=== PATIENT | female | born 1985 | race Two or more races ===

== ENCOUNTER 2019-12-18 15:29 | Emergency (ER) | payer OTHER ==
[~2019-12-18] VITALS: Ht 149.9 cm; Wt 59.9 kg
[2019-12-18 15:54] LABS: BILIRUBIN,URINE NEGATIVE (NEG); CLARITY,URINE CLEAR; COLOR,URINE YELLOW; NITRITE,URINE NEGATIVE (NEG); PROTEIN,URINE NEGATIVE (NEG-TRACE)
[2019-12-18 15:58] LABS: SQUAMOUS EPITHELIAL CELL,UR MOD /LPF
[2019-12-18 16:00] LABS: BACTERIA,URINE FEW /HPF (0-FEW); RBC,URINE RARE /HPF (0-2); WBC,URINE RARE /HPF (0-4)
--- NOTE | 2019-12-18 16:05 | PHYS DOC ---
Past Medical History Past Medical History: No Pertinent History Past Surgical History: Smoking Status: Never Smoker Alcohol Use: None General Adult EDM: Chief Complaint: ABDOMINAL PAIN HPI: HPI: Patient is a 34 year old female presents with a 2-day history of left-sided lower thoracic pain that radiates to the front. Patient states symptoms are worse with deep breaths and are moderate in severity at rest and more severe when she takes a deep breath. Patient denies any recent fevers chills cough vomiting or diarrhea. Patient also has had some intermittent ringing in her ears. Pain is sharp in nature. Review of Systems: Review of Systems: Constitutional: Denies fever or chills. [] Eyes: Denies change in visual acuity. [] HENT: Denies nasal congestion or sore throat. But has some ringing in her earS that is intermittent Respiratory: Denies cough but has some mild shortness of breath Cardiovascular: Complains of left lower rib pain but no edema GI: Denies abdominal pain, nausea, vomiting, bloody stools or diarrhea. [] : Denies dysuria. [] Musculoskeletal: Complains of left lower thoracic pain and some right shoulder pain Integument: Denies rash. [] Neurologic: Denies headache, focal weakness or sensory changes. [] Endocrine: Denies polyuria or polydipsia. [] Lymphatic: Denies swollen glands. [] Psychiatric: Denies depression or anxiety. [] Heart Score: HEART Score for Chest Pain: HEART Score for Chest Pain Response (Comments) Value History Slighlty/Non-Suspicious 0 ECG Normal 0 Age < 45 0 Risk Factors No Risk Factors 0 Troponin < Normal Limit 0 Total 0 Risk Factors: Risk Factors: DM, Current or recent (<one month) smoker, HTN, HLP, family history of CAD, obesity. Risk Scores: Score 0 - 3: 2.5% MACE over next 6 weeks - Discharge Home Score 4 - 6: 20.3% MACE over next 6 weeks - Admit for Clinical Observation Score 7 - 10: 72.7% MACE over next 6 weeks - Early Invasive Strategies Allergies: Allergies: Allergies Coded Allergies Type Severity Reaction Last Updated Verified No Known Drug Allergies 12/18/19 No Physical Exam: PE: Constitutional: Well developed, well nourished, no acute distress, non-toxic appearance. [] HENT: Normocephalic, atraumatic, bilateral external ears normal, oropharynx moist, no oral exudates, nose normal. [] Eyes: PERRLA, EOMI, conjunctiva normal, no discharge. [] Neck: Normal range of motion, no tenderness, supple, no stridor. [] Cardiovascular:Heart rate regular rhythm, no murmur [] Lungs & Thorax: Bilateral breath sounds clear to auscultation [] Abdomen: Bowel sounds normal, soft, no tenderness, no masses, no pulsatile masses. [] Skin: Warm, dry, no erythema, no rash. [] Back: No tenderness, no CVA tenderness. [] Extremities: No tenderness, no cyanosis, no clubbing, ROM intact, no edema. [] Neurologic: Alert and oriented X 3, normal motor function, normal sensory function, no focal deficits noted. [] Psychologic: Affect normal, judgement normal, mood normal. [] Current Patient Data: Labs: Laboratory Tests Test 12/18/19 15:44 12/18/19 16:10 Urine Collection Type Void Urine Color Yellow Urine Clarity Clear Urine pH 6.0 Urine Specific [place] 1.025 Urine Protein Negative mg/dL Urine Glucose (UA) Negative mg/dL Urine Ketones (Stick) Negative mg/dL Urine Blood Negative Urine Nitrite Negative Urine Bilirubin Negative Urine Urobilinogen Dipstick 1.0 mg/dL Urine Leukocyte Esterase Negative Urine RBC Rare /HPF Urine WBC Rare /HPF Urine Squamous Epithelial Cells Mod /LPF Urine Bacteria Few /HPF Urine Mucus Marked /LPF White Blood Count 7.4 x10^3/uL Red Blood Count 4.37 x10^6/uL Hemoglobin 14.3 g/dL Hematocrit 41.2 % Mean Corpuscular Volume 94 fL Mean Corpuscular Hemoglobin 33 pg Mean Corpuscular Hemoglobin Concent 35 g/dL Red Cell Distribution Width 12.8 % Platelet Count 209 x10^3/uL Neutrophils (%) (Auto) 47 % Lymphocytes (%) (Auto) 41 % Monocytes (%) (Auto) 9 % Eosinophils (%) (Auto) 3 % Basophils (%) (Auto) 0 % Neutrophils # (Auto) 3.4 x10^3/uL Lymphocytes # (Auto) 3.1 x10^3/uL Monocytes # (Auto) 0.6 x10^3/uL Eosinophils # (Auto) 0.2 x10^3/uL Basophils # (Auto) 0.0 x10^3/uL D-Dimer (Pina) < 0.27 ug/mlFEU Sodium Level 141 mmol/L Potassium Level 3.8 mmol/L Chloride Level 107 mmol/L Carbon Dioxide Level 27 mmol/L Anion Gap 7 Blood Urea Nitrogen 11 mg/dL Creatinine 0.8 mg/dL Estimated GFR (Cockcroft-Gault) 82.6 BUN/Creatinine Ratio 14 Glucose Level 98 mg/dL Calcium Level 9.7 mg/dL Total Bilirubin 0.4 mg/dL Aspartate Amino Transf (AST/SGOT) 20 U/L Alanine Aminotransferase (ALT/SGPT) 40 U/L Alkaline Phosphatase 36 U/L Troponin I Quantitative < 0.017 ng/mL Total Protein 7.9 g/dL Albumin 4.0 g/dL Albumin/Globulin Ratio 1.0 Lipase 150 U/L Current Medications Medications (Trade) Dose Ordered Sig/Radha Route PRN Reason Start Time Stop Time Status Last Admin Dose Admin Ketorolac Tromethamine (Toradol 15mg Vial) 15 mg 1X ONCE IVP 12/18/19 17:30 12/18/19 17:31 Laboratory Tests Test 12/18/19 15:44 Urine Collection Type Void Urine Color Yellow Urine Clarity Clear Urine pH 6.0 (<5.0-8.0) Urine Specific [place] 1.025 (1.000-1.030) Urine Protein Negative mg/dL (NEG-TRACE) Urine Glucose (UA) Negative mg/dL (NEG) Urine Ketones (Stick) Negative mg/dL (NEG) Urine Blood Negative (NEG) Urine Nitrite Negative (NEG) Urine Bilirubin Negative (NEG) Urine Urobilinogen Dipstick 1.0 mg/dL (0.2 mg/dL) Urine Leukocyte Esterase Negative (NEG) Urine RBC Rare /HPF (0-2) Urine WBC Rare /HPF (0-4) Urine Squamous Epithelial Cells Mod /LPF Urine Bacteria Few /HPF (0-FEW) Urine Mucus Marked /LPF Vital Signs: Vital Signs Date Time Temp Pulse Resp B/P (MAP) Pulse Ox O2 Delivery O2 Flow Rate FiO2 12/18/19 15:55 99.0 86 20 148/87 (107) 99 Room Air 99.0 EKG: EKG: [] EKG interpreted by me sinus rhythm with rate of 100 normal axis normal intervals normal ST segments Radiology/Procedures: Radiology/Procedures: [][facility] [address] [place] [address] IMAGING REPORT Signed PATIENT: MIGUEL CAROLINA ACCOUNT: [id number] : 1985 LOCATION: ER AGE: 34 SEX: F EXAM STATUS: REG ER ORD. PHYSICIAN: ERLINDA TRENT MD REASON: LEFT LOWER RIB PAIN /UCG FIRST PROCEDURE: PORTABLE CHEST 1V PORTABLE CHEST 1V History: Reason: LEFT LOWER RIB PAIN /UCG FIRST / Spl. Instructions: / History: Comparison: None. Findings: Low lung volumes. Mild bibasilar linear atelectasis. No pneumothorax. No pleural effusion. Normal heart size. Impression: 1. Low lung volumes with mild bibasilar linear atelectasis. Electronically signed by: Yared Amador DO (12/18/2019 5:14 PM) [facility] DICTATED and SIGNED BY: YARED AMADOR DO DATE: 12/18/19 0219 Course & Med Decision Making: Course & Med Decision Making Pertinent Labs and Imaging studies reviewed. (See chart for details) [] 34-year-old female presents with left sided back pain. Patient has no risk factors for thoracic aortic dissection and work-up is negative, doubt thoracic aortic dissection. D-dimer is negative, doubt pulmonary embolism. EKG and cardiac enzymes are negative, doubt acute coronary syndrome. Most likely patient has muscular strain. Return precautions given. Dragon Disclaimer: Yovany Disclaimer: This electronic medical record was generated, in whole or in part, using a voice recognition dictation system. Departure Departure Impression: Primary Impression: Left-sided thoracic back pain Disposition: HOME, SELF-CARE Condition: GOOD Referrals: NO PCP (PCP) 2-3 DAYS PCP Patient Instructions: Back Pain, Adult Additional Instructions: EMERGENCY DEPARTMENT GENERAL DISCHARGE INSTRUCTIONS THANK YOU for coming to [facility] Emergency Department (ED) today and trusting us with your care. We trust that you had a positive experience in our Emergency Department. If you wish to speak to the department Management you can contact the department helper at . YOUR FOLLOW UP INSTRUCTIONS ARE FOLLOWS: Do you have a private doctor? If you do not have a private doctor, please ask for a resource list of physicians or clinics that may be able to assist you with follow up care. The Emergency Physician has interpreted your x-rays. The X-ray specialist will also review them. If there is a change in the findings you will be notified in 48 hours when at all possible. A lab test or lab culture may have been done, your results will be reviewed and you will be notified if you need a change in treatment. ADDITIONAL INSTRUCTIONS AND INFORMATION Your care today has been supervised by a physician who is specially trained in emergency care. Many problems require more than one evaluation for a complete diagnosis and treatment. We recommend that you schedule your follow up appointment as recommended to ensure complete treatment of your illness or injury. If you are unable to obtain follow up care and continue to have a problem, or if your condition worsens we recommend that you return to the ED. We are not able to safely determine your condition over the phone nor are we able to give sound medical advice over the phone. For these safety reasons, if you call for medical advice we will ask you to come to the ED for further evaluation If you have any questions regarding these discharge instructions please call the ED at . SAFETY INFORMATION In the interest of safety, wellness, and injury prevention; we encourage you to wear your seatbelt, if you smoke; quit smoking, and we encourage your family to use protective helmet for bicycling and other sporting events that present an increased risk for head injury. IF YOUR SYMPTOMS WORSEN OR NEW SYMPTOMS DEVELOP, OR YOU HAVE CONCERNS ABOUT YOUR CONDITION; OR IF YOUR CONDITION WORSENS WHILE YOU ARE WAITING FOR YOUR FOLLOW UP APPOINTMENT; EITHER CONTACT YOUR PRIMARY CARE DOCTOR, THE PHYSICIAN WHOSE NAME AND NUMBER YOU WERE GIVEN, OR RETURN TO THE ED IMMEDIATELY. Scripts Ibuprofen (IBUPROFEN) 600 Mg Tablet 600 MG PO PRN Q6HRS PRN for INFLAMMATION, #20 TAB Prov: ERLINDA TRENT MD 12/18/19 Justicifation of Admission Dx: Justifications for Admission: Justification of Admission Dx: N/A ERLINDA TRENT MD Dec 18, 2019 16:05
[2019-12-18 16:15] LABS: BASO % 0 % (0-3); EOS # 0.2 x10^3/uL (0.0-0.7); EOS % 3 % (0-3); HEMATOCRIT 41.2 % (36.0-47.0); HEMOGLOBIN 14.3 g/dL (12.0-15.5); LYMPH # 3.1 x10^3/uL (1.0-4.8); LYMPH % 41 % (24-48); MEAN CORPUSCULAR HEMOGLOBIN 33 pg (25-35); MEAN CORPUSCULAR HGB CONC 35 g/dL (31-37); MEAN CORPUSCULAR VOLUME 94 fL (79-100); MONO # 0.6 x10^3/uL (0.0-1.1); MONO % 9 % (0-9); NEUT # 3.4 x10^3/uL (1.8-7.7); NEUT % 47 % (31-73); PLATELET COUNT 209 x10^3/uL (140-400); RED BLOOD COUNT 4.37 x10^6/uL (3.50-5.40); RED CELL DISTRIBUTION WIDTH 12.8 % (11.5-14.5); WHITE BLOOD COUNT 7.4 x10^3/uL (4.0-11.0)
[2019-12-18 16:22] LABS: CALCIUM 9.7 mg/dL (8.5-10.1); CREATININE 0.8 mg/dL (0.6-1.0); GFR 82.6; POTASSIUM 3.8 mmol/L (3.5-5.1)
[2019-12-18 16:28] LABS: TOTAL BILIRUBIN 0.4 mg/dL (0.2-1.0); TOTAL PROTEIN 7.9 g/dL (6.4-8.2)
--- NOTE | 2019-12-18 16:41 | EKG ---
[facility] [address] [place] [address] Test Date: 2019-12-18 Test Time: 16:01:53 Pat Name: MIGUEL CAROLINA Department: Room: Gender: F Cardiology Specialist: : 1985 Requested By: ERLINDA TRENT Order Number: [id number] Reading MD: Measurements Intervals [place] Rate: 100 P: 43 LA: 128 QRS: 34 QRSD: 78 T: 20 QT: 332 QTc: 431 Interpretive Statements SINUS RHYTHM NORMAL ECG RI6.02 No previous ECG available for comparison
[2019-12-18 17:00] VITALS: BP 155/77
--- NOTE | 2019-12-18 17:17 | RAD ---
PORTABLE CHEST 1V History: Reason: LEFT LOWER RIB PAIN /UCG FIRST / Spl. Instructions: / History: Comparison: None. Findings: Low lung volumes. Mild bibasilar linear atelectasis. No pneumothorax. No pleural effusion. Normal heart size. Impression: 1. Low lung volumes with mild bibasilar linear atelectasis. Electronically signed by: Yared Sandoval DO (12/18/2019 5:14 PM) [facility]
[2019-12-18] MEDS ORDERED: KETOROLAC 15 MG/ML VIAL. IVP ONE (17:30)
[2019-12-18] MEDS ORDERED: IBUP-1007 PO (17:32)
== END 2019-12-18 18:02 | disposition home or self-care (01) ==
LOC: ER 15:29
DX: G89.11 Acute pain due to trauma (principal); M54.6 Pain in thoracic spine; R06.02 Shortness of breath; H93.13 Tinnitus, bilateral; M25.511 Pain in right shoulder; Z98.890 Other specified postprocedural states; X58.XXXA Exposure to other specified factors, initial encounter; Y93.89 Activity, other specified; Y92.89 Other specified places as the place of occurrence of the external cause; Y99.8 Other external cause status
CPT/HCPCS: 36415; 71045; 80053; 81001; 81025; 83690; 84484; 85025; 85379; 93005; 96374; 99285; J1885

== ENCOUNTER 2020-01-27 12:31 | Emergency (ER) | payer OTHER ==
[~2020-01-27] VITALS: Ht 149.9 cm; Wt 120.0 kg
[~2020-01-27 12:31] MED LIST: IBUP-1007 PO
[2020-01-27 12:42] VITALS: BP 157/88
[2020-01-27] MEDS ORDERED: METH4TAB2 PO (12:53)
[2020-01-27] MEDS ORDERED: CYCL10TA2 PO (12:53)
[2020-01-27] MEDS ORDERED: IBUP-1007 PO (12:53)
--- NOTE | 2020-01-27 12:53 | PHYS DOC ---
Past Medical History Past Medical History: No Pertinent History Past Surgical History: Smoking Status: Never Smoker Alcohol Use: None General Adult EDM: Chief Complaint: LOWER EXT PAIN HPI: HPI: Patient is a 34 year old Egyptian speaking female who presents to the ED today complaining of 10 out of 10 bilateral low back pain described as sharp and intermittent that began 12 days ago. Patient denies any known injury. She states the pain radiates to her buttocks. Denies any loss of bowel/bladder function. Describes the pain as throbbing worse on certain movements. She r eports she was seen in the ED 10 days ago for the same complaint and was given ibuprofen which helped with the pain but does not help her sleep. Denies any injury. Denies any loss of bowel/bladder function. Denies any numbness or tingling to bilateral lower extremities. Patient's daughter interpreted for Egyptian Review of Systems: Review of Systems: Constitutional: Denies fever or chills. [] GI: Denies abdominal pain, nausea, vomiting, bloody stools or diarrhea. [] : Denies dysuria. [] Musculoskeletal: Reports low back pain Integument: Denies rash. [] Neurologic: Denies headache, focal weakness or sensory changes. [] Psychiatric: Denies depression or anxiety. [] Heart Score: Risk Factors: Risk Factors: DM, Current or recent (<one month) smoker, HTN, HLP, family history of CAD, obesity. Risk Scores: Score 0 - 3: 2.5% MACE over next 6 weeks - Discharge Home Score 4 - 6: 20.3% MACE over next 6 weeks - Admit for Clinical Observation Score 7 - 10: 72.7% MACE over next 6 weeks - Early Invasive Strategies Allergies: Allergies: Allergies Coded Allergies Type Severity Reaction Last Updated Verified No Known Drug Allergies 12/18/19 No Physical Exam: PE: Constitutional: Well developed, well nourished, no acute distress, non-toxic appearance. [] Abdomen: Bowel sounds normal, soft, no tenderness, no masses, no pulsatile masses. [] Skin: Warm, dry, no erythema, no rash. [] Back: Diffuse paraspinal muscle tenderness of bilateral lumbar spine, no midline lumbar spine tenderness, no CVA tenderness. Negative bilateral straight leg raises Extremities: No tenderness, no cyanosis, no clubbing, ROM intact, no edema. [] Neurologic: Alert and oriented X 3, normal motor function, normal sensory function, no focal deficits noted. [] Psychologic: Affect normal, judgement normal, mood normal. [] EKG: EKG: [] Radiology/Procedures: Radiology/Procedures: [] Course & Med Decision Making: Course & Med Decision Making Pertinent Labs and Imaging studies reviewed. (See chart for details) This is a 34-year-old female patient presenting to the ED today with low back pain that has been going on for 12 days intermittently, she was seen in the ED 10 days ago had a big work-up which was negative, will sent home with ibuprofen which she states helps with the pain but does not help with sleeping. Patient has no injury. Patient does not have any cauda equina syndrome symptoms. Was given prescription for cyclobenzaprine, Medrol Dosepak and ibuprofen. Heat recommended for low back. Provided PCP for follow-up. Jnon Disclaimer: Yovany Disclaimer: This electronic medical record was generated, in whole or in part, using a voice recognition dictation system. Departure Departure Impression: Primary Impression: Back pain Qualified Codes: M54.5 - Low back pain Disposition: 01 DC HOME SELF CARE/HOMELESS Condition: STABLE Referrals: NO PCP (PCP) follow up with a doctor from the list provided Patient Instructions: Back Pain, Adult, [id number] Additional Instructions: You have urinary tract infection. Take the prescribed antibiotics until completed. Push fluids. Take Tylenol as needed for pain. Follow-up with your doctor in the next 1 week. Come back to the ED at any point symptoms worsen. Scripts Ibuprofen (IBUPROFEN) 600 Mg Tablet 600 MG PO PRN Q6HRS PRN for INFLAMMATION, #60 TAB Prov: MUTUNGA,MAURICE V BELT MOLD ASSEMBLER AND CURER 10/25/20 Cyclobenzaprine Hcl (CYCLOBENZAPRINE HCL) 10 Mg Tablet 1 TAB PO TID, #90 TAB Prov: MUTUNGA,MAURICE V BELT MOLD ASSEMBLER AND CURER 10/25/20 Methylprednisolone (MEDROL) 4 Mg Tab.ds.pk 1 PKG PO UD, #1 PKG Prov: MUTUNGA,MAURICE V BELT MOLD ASSEMBLER AND CURER 10/25/20 MUTUNGA,MAURICE V BELT MOLD ASSEMBLER AND CURER Jan 27, 2020 12:53
== END 2020-01-27 13:06 | disposition home or self-care (01) ==
LOC: ER 12:31
DX: M54.5 Low back pain (principal)
CPT/HCPCS: 99283

== ENCOUNTER 2021-07-02 13:01 | Emergency (ER) | payer OTHER ==
[~2021-07-02] VITALS: Ht 147.3 cm; Wt 63.0 kg
[~2021-07-02 13:01] MED LIST changes: +CYCL10TA19 PO; +METH4TAB2 PO
[2021-07-02 13:09] VITALS: BP 123/75
[2021-07-02] MEDS ORDERED: MORPHINE SULFATE 4 MG/ML INJ. IVP ONE ×2 (13:45→14:30)
[2021-07-02] MEDS ORDERED: ONDANSETRON PF 4 MG/2 ML VIAL. IVP ONE (13:45)
[2021-07-02] MEDS ORDERED: IV NORMAL SALINE 1000ML BAG 1,000 ML IV ONE (13:45)
--- NOTE | 2021-07-02 13:59 | PHYS DOC ---
Past Medical History Past Medical History: No Pertinent History Past Surgical History: Smoking Status: Never Smoker Alcohol Use: None General Adult EDM: Chief Complaint: ABDOMINAL PAIN HPI: HPI: Patient is a 36 year old female presented to the ED today complaining of 10 out of 10 suprapubic sharp constant abdominal pain, with dysuria dysuria symptoms began yesterday. Is also complaining of hematuria that began today. Patient is also complaining of 10 out of 10 low back pain that began today. States her pain is worse when she is urinating or bending. Denies any fever, denies any nausea or vomiting. Denies anything relieving her pain. Patient is Congolese speaking and systematic theology professor line is used Review of Systems: Review of Systems: Constitutional: Denies fever or chills. [] Eyes: Denies change in visual acuity. [] HENT: Denies nasal congestion or sore throat. [] Respiratory: Denies cough or shortness of breath. [] Cardiovascular: Denies chest pain or edema. [] GI: Reports suprapubic abdominal pain, denies nausea, vomiting, bloody stools or diarrhea. [] : Reports dysuria, hematuria Musculoskeletal: Denies back pain or joint pain. [] Integument: Denies rash. [] Neurologic: Denies headache, focal weakness or sensory changes. [] ] Psychiatric: Denies depression or anxiety. [] Heart Score: C/O Chest Pain: N/A Risk Factors: Risk Factors: DM, Current or recent (<one month) smoker, HTN, HLP, family history of CAD, obesity. Risk Scores: Score 0 - 3: 2.5% MACE over next 6 weeks - Discharge Home Score 4 - 6: 20.3% MACE over next 6 weeks - Admit for Clinical Observation Score 7 - 10: 72.7% MACE over next 6 weeks - Early Invasive Strategies Current Medications: Current Medications Medications (Trade) Dose Ordered Sig/Radha Start Time Stop Time Status Last Admin Dose Admin Morphine Sulfate (Morphine Sulfate) 4 mg 1X ONCE 07/02/21 13:45 07/02/21 13:46 DC Ondansetron HCl (Zofran) 4 mg 1X ONCE 07/02/21 13:45 07/02/21 13:46 DC Sodium Chloride 1,000 ml @ 1,000 mls/hr 1X ONCE 07/02/21 13:45 07/02/21 14:44 Allergies: Allergies: Allergies Coded Allergies Type Severity Reaction Last Updated Verified No Known Drug Allergies 07/02/21 No Physical Exam: PE: Constitutional: Well developed, well nourished, no acute distress, non-toxic appearance. [] HENT: Normocephalic, atraumatic, bilateral external ears normal, oropharynx moist, no oral exudates, nose normal. [] Eyes: PERRLA, EOMI, conjunctiva normal, no discharge. [] Neck: Normal range of motion, no tenderness, supple, no stridor. [] Cardiovascular:Heart rate regular rhythm, no murmur [] Lungs & Thorax: Bilateral breath sounds clear to auscultation [] Abdomen: Bowel sounds normal, soft, no tenderness, no masses, no pulsatile masses. [] Skin: Warm, dry, no erythema, no rash. [] Back: No tenderness, no CVA tenderness. [] Extremities: No tenderness, no cyanosis, no clubbing, ROM intact, no edema. [] Neurologic: Alert and oriented X 3, normal motor function, normal sensory function, no focal deficits noted. [] Psychologic: Patient is tearful Current Patient Data: Vital Signs: Vital Signs Date Time Temp Pulse Resp B/P (MAP) Pulse Ox O2 Delivery O2 Flow Rate FiO2 07/02/21 13:09 98.4 97 24 123/75 (91) 98 Room Air 98.4 EKG: EKG: [] Radiology/Procedures: Radiology/Procedures: []PROCEDURE: OB <14 WKS W/TV US OB <14 WKS +TV: 07/02/2021 3:22 PM INDICATION: 36 years old Female. Abdominal pain in . COMPARISON: None. TECHNIQUE: Transabdominal and transvaginal sonographic evaluation of the pelvis was performed. Grayscale, color Doppler and spectral waveform analysis were utilized. FINDINGS: UTERUS: Size: 11.6 x 6.8 x 5.6 cm. Masses: None. Endometrium: Single regular appearing gestational sac is identified with yolk sac and pole. heart tones measure 110 bpm. [place]-rump length measures 0.5 cm compatible gestational age of 6 weeks 2 days. Mean sac diameter measures 3.23 cm compatible gestational age of 8 weeks 3 days. Sonographic EDC 02/15/2022. RIGHT OVARY: 2.6 x 2.4 x 2.4 cm. Ovary is normal in appearance. Dominant follicle measures 1.7 cm. LEFT OVARY: 3.2 x 2.0 x 1.6 cm. Ovary is normal in appearance. Arterial and venous waveform are identified within the ovaries bilaterally at the time of imaging. FREE FLUID: None. URINARY BLADDER: Unremarkable. IMPRESSION: Single viable intrauterine gestation is identified with heart tones measure 110 bpm. There is discrepancy between gestational sac size and crown- rump length. With crown-rump length, estimated gestational age of 6 weeks 2 days. Average gestational age utilizing with gestational sac and crown-rump length measures 7 weeks 3 days. Short-term follow-up beta hCG and pelvic ultrasound could be of benefit. Electronically signed by: Jen Mukherjee MD (07/02/2021 4:13 PM) [facility] DICTATED and SIGNED BY: JEN MUKHERJEE MD DATE: 07/02/211607 Course & Med Decision Making: Course & Med Decision Making Pertinent Labs and Imaging studies reviewed. (See chart for details) This a 36-year-old female patient presented to the ED today with complaints of suprapubic abdominal pain, hematuria, dysuria, symptoms since yesterday. Positive urine hCG, beta-hCG 72,313, CMP with potassium of 3.2, given oral potassium replacement. WBC 13.9, hemoglobin and hematocrit are normal. Urine positive for UTI, given Rocephin IV in the ED and discharged on cephalexin. OB ultrasound noted for single IUP heart tones measure 110 bpm. There is discrepancy between gestational sac size and crown-rump length. With crown-rump length, estimated gestational age of 6 weeks 2 days. Average gestational age utilizing with gestational sac and crown-rump length measures 7 weeks 3 days. Short-term follow-up beta hCG and pelvic ultrasound could be of benefit. Patient was provided an BUSINESS ADVISOR to follow-up with. Provided return precautions. Yovany Disclaimer: Yovany Disclaimer: This electronic medical record was generated, in whole or in part, using a voice recognition dictation system. Departure Departure Impression: Primary Impression: state, incidental Additional Impressions: Urinary tract infection during Qualified Codes: O23.41 - Unspecified infection of urinary tract in , first trimester Abdominal pain in Qualified Codes: O26.891 - Other specified related conditions, first trimester; R10.9 - Unspecified abdominal pain Disposition: HOME / SELF CARE / HOMELESS Condition: STABLE Referrals: NO PCP (PCP) DAYAN AMADOR MD Follow-up in the next 2 to 7 days Patient Instructions: ABCs of , - Urinary Tract Infection Additional Instructions: You were evaluated in the emergency room, congratulations you h are 6 weeks 2 d ays !! You also have urinary tract infection, take the prescribed antibiotics until completed. Try and push fluids. You can take Tylenol for pain. Please follow-up with your own BUSINESS ADVISOR or one of the provided BUSINESS ADVISOR's in your discharge report. Come back to the ED at any point symptoms worsen Scripts Cephalexin (CEPHALEXIN) 500 Mg Tablet 1 TAB PO BID, #14 TAB Prov: MAURICE BRADY APRN 07/02/21 MAURICE BRADY APRN Jul 02, 2021 13:59
[2021-07-02 14:00] LABS: BACTERIA,URINE FEW /HPF (0-FEW); WBC,URINE 20-40 /HPF (0-4)
[2021-07-02 14:05] LABS: BASO % 0 % (0-3); EOS # 0.1 x10^3/uL (0.0-0.7); EOS % 1 % (0-3); HEMOGLOBIN 14.3 g/dL (12.0-15.5); LYMPH # 2.3 x10^3/uL (1.0-4.8); LYMPH % 16 % (24-48); MEAN CORPUSCULAR HEMOGLOBIN 32 pg (25-35); MEAN CORPUSCULAR HGB CONC 34 g/dL (31-37); MEAN CORPUSCULAR VOLUME 93 fL (79-100); MONO # 0.7 x10^3/uL (0.0-1.1); MONO % 5 % (0-9); NEUT # 10.7 x10^3/uL (1.8-7.7); NEUT % 77 % (31-73); PLATELET COUNT 224 x10^3/uL (140-400); RED BLOOD COUNT 4.52 x10^6/uL (3.50-5.40); RED CELL DISTRIBUTION WIDTH 12.8 % (11.5-14.5); WHITE BLOOD COUNT 13.9 x10^3/uL (4.0-11.0)
[2021-07-02] MEDS ORDERED: cefTRIAXone IV Push 1 GM VIAL. IVP ONE (14:30)
[2021-07-02 14:36] LABS: CALCIUM 8.4 mg/dL (8.5-10.1); CREATININE 0.5 mg/dL (0.6-1.0); GFR 140.4; POTASSIUM 3.2 mmol/L (3.5-5.1)
[2021-07-02 14:42] LABS: ALBUMIN 3.5 g/dL (3.4-5.0); ALBUMIN/GLOBULIN RATIO 1.1 (1.0-1.7); TOTAL BILIRUBIN 0.8 mg/dL (0.2-1.0); TOTAL PROTEIN 6.8 g/dL (6.4-8.2)
[2021-07-02 14:55] LABS: U PREG PATIENT POSITIVE (NEG)
--- NOTE | 2021-07-02 16:16 | RAD ---
US OB <14 WKS +TV: 07/02/2021 3:22 PM INDICATION: 36 years old Female. Abdominal pain in . COMPARISON: None. TECHNIQUE: Transabdominal and transvaginal sonographic evaluation of the pelvis was performed. Hortensia allie, color Doppler and spectral waveform analysis were utilized. FINDINGS: UTERUS: Size: 11.6 x 6.8 x 5.6 cm. Masses: None. Endometrium: Single regular appearing gestational sac is identified with yolk sac and pole. Fet al heart tones measure 110 bpm. [place]-rump length measures 0.5 cm compatible gestational age of 6 wee ks 2 days. Mean sac diameter measures 3.23 cm compatible gestational age of 8 weeks 3 days. Sonograph ic EDC 02/15/2022. RIGHT OVARY: 2.6 x 2.4 x 2.4 cm. Ovary is normal in appearance. Dominant follicle measures 1.7 cm. LEFT OVARY: 3.2 x 2.0 x 1.6 cm. Ovary is normal in appearance. Arterial and venous waveform are identified within the ovaries bilaterally at the time of imaging. FREE FLUID: None. URINARY BLADDER: Unremarkable. IMPRESSION: Single viable intrauterine gestation is identified with heart tones measure 110 bpm. There is d iscrepancy between gestational sac size and crown-rump length. With crown-rump length, estimated gest ational age of 6 weeks 2 days. Average gestational age utilizing with gestational sac and crown-rump length measures 7 weeks 3 days. Short-term follow-up beta hCG and pelvic ultrasound could be of benef it. Electronically signed by: Mary Ellen Mukherjee MD (07/02/2021 4:13 PM) [facility]
[2021-07-02] MEDS ORDERED: CEPH500T PO (16:59)
== END 2021-07-02 17:29 | disposition home or self-care (01) ==
LOC: ER 13:01
DX: O23.41 Unspecified infection of urinary tract in pregnancy, first trimester (principal); Z3A.01 Less than 8 weeks gestation of pregnancy
CPT/HCPCS: 36415; 76801; 76817; 80053; 81001; 81025; 83690; 84702; 85025; 87077; 87086; 87186; 99284; J0696; J2270; J2405; J7030

== ENCOUNTER → 2021-07-17 | Outpatient (CLI) | payer OTHER ==
[2021-07-02 13:09] VITALS: BP 123/75
[~2021-07-17] MED LIST changes: +CEPH500T PO
[2021-07-17 11:41] LABS: HEMATOCRIT 41.9 % (36.0-47.0); HEMOGLOBIN 14.3 g/dL (12.0-15.5); RED BLOOD COUNT 4.47 x10^6/uL (3.50-5.40); RED CELL DISTRIBUTION WIDTH 12.7 % (11.5-14.5); WHITE BLOOD COUNT 8.3 x10^3/uL (4.0-11.0)
[2021-07-18 19:27] LABS: RUBELLA IGG ANTIBODY <0.90 index (Immune >0.99)
== END ==
LOC: LAB 10:49
PROVIDERS: ATTEND Obstetrics & Gynecology
DX: Z34.91 Encounter for supervision of normal pregnancy, unspecified, first trimester (principal)
CPT/HCPCS: 36415; 84702; 85027; 85660; 86592; 86703; 86762; 86787; 86803; 86850; 86900; 86901; 87340

== ENCOUNTER → 2021-07-24 | Outpatient (CLI) | payer OTHER ==
[2021-07-02 13:09] VITALS: BP 123/75
--- NOTE | 2021-07-24 15:08 | RAD ---
US OB <14 WKS +TV History: Reason: unsure dates / Spl. Instructions: / History: Comparison: None. Technique: Grayscale and color Doppler imaging of the pelvis was performed using transabdominal and t ransvaginal technique. Findings: The uterus measures 12.0 x 8.0 x 7.0 cm. Single intrauterine gestational sac with oblong appearance. Yolk sac is identified. pole is niko ntified with crown-rump length 0.42 cm. Displayed gestational age by ultrasound 6 weeks 1 day. No fet al heart rate is detected. Right ovary measures 2.7 x 2.3 x 2.1 cm. Complicated dominant right ovarian follicle measures 1.7 cm. Normal Doppler flow to the right ovary. Left ovary not identified due to overlying bowel gas. IMPRESSION: 1. Single intrauterine with gestational age 6 weeks 1 day. No heart rate is detected . Findings may relate to early although failed early is possible. Recommend furth er clinical evaluation. Also recommend follow-up ultrasound serial beta-hCG testing. Electronically signed by: Yared Sandoval DO (07/24/2021 3:06 PM) [facility]
== END ==
LOC: US 14:14
PROVIDERS: ATTEND Obstetrics & Gynecology
DX: Z34.91 Encounter for supervision of normal pregnancy, unspecified, first trimester (principal)
CPT/HCPCS: 76801; 76817

== ENCOUNTER 2021-08-18 14:30 | Emergency (ER) | payer OTHER ==
[~2021-08-18] VITALS: Ht 137.2 cm; Wt 62.5 kg
[2021-08-18 15:18] LABS: BACTERIA,URINE FEW /HPF (0-FEW); WBC,URINE 20-40 /HPF (0-4)
[2021-08-18] MEDS ORDERED: CEPHALEXIN 250 MG CAPSULE. PO STA (15:31)
[2021-08-18] MEDS ORDERED: PHENAZOPYRIDINE 200 MG TABLET. PO STA (15:31)
[2021-08-18] MEDS ORDERED: NAPR500T8 PO (15:47)
[2021-08-18] MEDS ORDERED: PHEN-318 PO (15:47)
[2021-08-18] MEDS ORDERED: CEPH500T PO (15:47)
--- NOTE | 2021-08-18 15:47 | PHYS DOC ---
Past Medical History Past Medical History: No Pertinent History Past Surgical History: Smoking Status: Never Smoker Alcohol Use: None General Adult EDM: Chief Complaint: PAIN ON URINATION HPI: HPI: Patient is a 36 year old female who presents to the ED today to be evaluated for dysuria that began yesterday. Patient denies any fever, nausea, vomiting. Patient is Mac[place] speaking and foreign language interpreter line was used Review of Systems: Review of Systems: Constitutional: Denies fever or chills. [] Eyes: Denies change in visual acuity. [] HENT: Denies nasal congestion or sore throat. [] Respiratory: Denies cough or shortness of breath. [] Cardiovascular: Denies chest pain or edema. [] GI: Denies abdominal pain, nausea, vomiting, bloody stools or diarrhea. [] : Reports dysuria. [] Musculoskeletal: Denies back pain or joint pain. [] Integument: Denies rash. [] Neurologic: Denies headache, focal weakness or sensory changes. [] Psychiatric: Denies depression or anxiety. [] Heart Score: C/O Chest Pain: N/A Risk Factors: Risk Factors: DM, Current or recent (<one month) smoker, HTN, HLP, family history of CAD, obesity. Risk Scores: Score 0 - 3: 2.5% MACE over next 6 weeks - Discharge Home Score 4 - 6: 20.3% MACE over next 6 weeks - Admit for Clinical Observation Score 7 - 10: 72.7% MACE over next 6 weeks - Early Invasive Strategies Current Medications: Current Medications Medications (Trade) Dose Ordered Sig/Radha Start Time Stop Time Status Last Admin Dose Admin Cephalexin HCl (Keflex) 500 mg 1X STAT 08/18/21 15:31 08/18/21 15:35 DC Phenazopyridine HCl (Pyridium) 200 mg 1X STAT 08/18/21 15:31 08/18/21 15:35 DC Allergies: Allergies: Allergies Coded Allergies Type Severity Reaction Last Updated Verified No Known Drug Allergies 07/02/21 No Physical Exam: PE: Constitutional: Well developed, well nourished, no acute distress, non-toxic appearance. [] HENT: Normocephalic, atraumatic, bilateral external ears normal, oropharynx moist, no oral exudates, nose normal. [] Eyes: PERRLA, EOMI, conjunctiva normal, no discharge. [] Neck: Normal range of motion, no tenderness, supple, no stridor. [] Cardiovascular:Heart rate regular rhythm, no murmur [] Lungs & Thorax: Bilateral breath sounds clear to auscultation [] Abdomen: Bowel sounds normal, soft, no tenderness, no masses, no pulsatile masses. [] Skin: Warm, dry, no erythema, no rash. [] Back: No tenderness, no CVA tenderness. [] Extremities: No tenderness, no cyanosis, no clubbing, ROM intact, no edema. [] Neurologic: Alert and oriented X 3, normal motor function, normal sensory function, no focal deficits noted. [] Psychologic: Affect normal, judgement normal, mood normal. [] Current Patient Data: Labs: Laboratory Tests Test 08/18/21 14:45 08/18/21 14:50 Urine Collection Type Unknown Urine Color (Auto) Light yellow Urine Turbidity Hazy Urine pH (Auto) 5.5 (<5.0-8.0) Urine Specific [place] 1.009 (1.000-1.030) Urine Protein (Auto) 30 mg/dL (Negative) Urine Glucose (Auto)(UA) Negative mg/dL (Negative) Urine Ketones (Auto) 40 mg/dL (Negative) Urine Blood (Auto) Large (Negative) Urine Nitrite Negative (Negative) Urine Bilirubin (Auto) Negative (Negative) Urine Urobilinogen (Auto) Normal mg/dL (Normal) Urine Leukocyte Esterase (Auto) Large (Negative) Urine RBC 11-20 /HPF (0-2) Urine WBC 20-40 /HPF (0-4) Urine Squamous Epithelial Cells Few /LPF Urine Bacteria Few /HPF (0-FEW) Urine Mucus Slight /LPF POC Urine HCG, Qualitative Hcg negative (Negative) Vital Signs: Vital Signs Date Time Temp Pulse Resp B/P (MAP) Pulse Ox O2 Delivery O2 Flow Rate FiO2 08/18/21 14:45 98.2 83 16 156/86 (109) 100 Room Air 98.2 EKG: EKG: [] Radiology/Procedures: Radiology/Procedures: [] Course & Med Decision Making: Course & Med Decision Making Pertinent Labs and Imaging studies reviewed. (See chart for details) This a 36-year-old female patient presented to the ED today complaining of dysuria that began yesterday. Urine positive for UTI, negative urine hCG. Discharged on cephalexin. Follow-up with PCP in 1 week Yovany Disclaimer: Yovany Disclaimer: This electronic medical record was generated, in whole or in part, using a voice recognition dictation system. Departure Departure Impression: Primary Impression: UTI (urinary tract infection) Qualified Codes: N39.0 - Urinary tract infection, site not specified Disposition: HOME / SELF CARE / HOMELESS Condition: STABLE Referrals: NO PCP (PCP) follow up with your doctor in one week Patient Instructions: Urinary Tract Infection Additional Instructions: You have urinary tract infection. Take the prescribed antibiotics until completed. Follow-up with your doctor in 1 week, push fluids. You can take Ty lenol or Motrin for pain or fever. Scripts Naproxen (NAPROXEN) 500 Mg Tablet.dr 1 TAB PO BID, #20 TAB 0 Refills Prov: MAURICE BRADY APRN 08/18/21 Phenazopyridine Hcl (PYRIDIUM) 200 Mg Tablet 1 TAB PO TID for urinary discomfort for 3 Days, #9 TAB 0 Refills Prov: MAURICE BRADY APRN 08/18/21 Cephalexin (CEPHALEXIN) 500 Mg Tablet 1 TAB PO BID, #14 TAB Prov: MAURICE BRADY APRN 08/18/21 MAURICE BRADY APRN August 18, 2021 15:47
[2021-08-18 15:58] VITALS: BP 137/83
== END 2021-08-18 16:00 | disposition home or self-care (01) ==
LOC: ER 14:30
DX: N39.0 Urinary tract infection, site not specified (principal)
CPT/HCPCS: 81001; 81025; 87077; 87086; 87186; 99283